=== PATIENT | female | born 1960 | race Caucasian/White ===

== ENCOUNTER → 2018-03-12 | Outpatient (CLI) | payer OTHER ==
[~2018-03-12] MED LIST: CETI10CA8 PO; CYCL10TA29 PO; DIPH-740 PO; FLUT16SP19 NS; IBUP-56 PO; LEVO-3 PO; LEVO125T77 PO; LISI-362 PO; MOMR ENA; MONT10TA PO; OXYC-865 PO
--- NOTE | 2018-03-12 09:34 | RADIOLOGY IMAGING REPORT ---
FACILITY: [facility] [place] PATIENT NAME: Magnolia Ware : 1960 MR: [id number] V: [id number] EXAM DATE: ORDERING PHYSICIAN: JENNIFER GLASGOW TECHNOLOGIST: Location: [facility] Patient: Magnolia Ware : 1960 Visit/Account:[id number] Date of Sevice: 03/12/2018 EXAMINATION: Abdominal ultrasound complete HISTORY: Liver and pancreas exists visualized on CT COMPARISON: CT abdomen pelvis February 22, 2018 FINDINGS: Gallbladder: No stones, wall thickening, pericholecystic fluid or sonographic Aldrich sign. Liver: Two cysts are identified in the liver one along the anterior dome measuring 1.25 centers in di ameter and one along the inferior right lobe measuring 4.7 cm in diameter. There is mild increased e chogenicity throughout liver which can be seen with fatty infiltration or other infiltrative process Common duct: Normal measuring 6.5 mm. Pancreas: Pancreas appears unremarkable at this time. Spleen: Normal in size and echogenicity measuring 12.1 cm in length. Kidneys: Normal in size and echogenicity, the right measures 10.2 cm in length, and the left 11 cm. No hydronephrosis. Upper abdominal aorta and IVC: Negative. Ascites: None. IMPRESSION: Hepatic cysts. Mild increased echogenicity throughout liver which can be seen with fatty infiltratio n or other infiltrative process The pancreas appears unremarkable at this time. If pancreatic pathology remains of strong clinical c oncern a follow-up MR or dedicated CT of the pancreas recommended for further evaluation if the patient is unable to have an MR Report Dictated By: Shannen Sharp MD at 03/12/2018 9:22 AM Report E-Signed By: Shannen Sharp MD at 03/12/2018 9:29 AM WSN:[email or web address]
== END ==
LOC: US 01:22
PROVIDERS: ATTEND Family Medicine
DX: K76.89 Other specified diseases of liver (principal); K86.2 Cyst of pancreas
CPT/HCPCS: 76700

== ENCOUNTER 2018-04-08 00:57 | Observation (INO) | payer OTHER ==
[2018-04-08] VITALS (9 sets, daily range): BP systolic 132–146; BP diastolic 61–82
[~2018-04-08] VITALS: Ht 162.6 cm; Wt 115.7 kg
[~2018-04-08 00:57] MED LIST changes: +MAGN100T PO; +TURM538C
[2018-04-08] MEDS ORDERED: MIDAZOLAM 2 MG/2 ML VIAL IVP PRN (07:25)
[2018-04-08] MEDS ORDERED: NORMOSOL R SOLN(*) 1000 ML BAG 1,000 ML IV PRN (07:25)
[2018-04-08] MEDS ORDERED: LIDOCAINE/SOD BICARB 8.4% SYR ID ONE (07:25)
[2018-04-08] MEDS ORDERED: FAMOTIDINE 20 MG TAB PO ONE (07:25)
[2018-04-08 12:35] LABS: PLATELET COUNT, AUTOMATED 325 K/uL (150-450)
[2018-04-08] MEDS ORDERED: ceFAZolin(*) 2GM/D5W 50ML 50 ML IVPB ONE (12:40)
[2018-04-08] MEDS ORDERED: BUPIVACAINE/EPI 0.5% 50ML VIAL INFIL ONE (13:07)
[2018-04-08] MEDS ORDERED: fentaNYL CITR 100 MCG/2 ML AMP ONE ×3 (15:02→17:45)
--- NOTE | 2018-04-08 15:15 | EKG ---
FACILITY: [facility] PATIENT NAME: KORTNEY REA : [id number] MR: [id number] V: [id number] EXAM DATE: ORDERING PHYSICIAN: ANIBAL HDZ TECHNOLOGIST: Test Reason : Pre-op Blood Pressure : / mmHG Vent. Rate : 095 BPM Atrial Rate : 095 BPM P-R Int : 140 ms QRS Dur : 060 ms QT Int : 332 ms P-R-T Axes : 065 048 056 degrees QTc Int : 417 ms Normal sinus rhythm Low voltage QRS Borderline ECG No previous ECGs available Confirmed by ANIBAL HDZ ([id number]) on 04/09/2018 6:06:41 AM Referred By: Confirmed By:ANIBAL HDZ
[2018-04-08] MEDS ORDERED: SUGAMMADEX SOD 500 MG/5 ML SDV ONE (16:49)
[2018-04-08] MEDS ORDERED: DEXAMETHASONE SOD PHOS 10MG/ML ONE (16:50)
[2018-04-08] MEDS ORDERED: ROCURONIUM BROM 10 MG/ML 10 ML ONE (16:50)
[2018-04-08] MEDS ORDERED: ONDANSETRON 4 MG/2 ML VIAL ONE ×2 (16:50→17:42)
[2018-04-08] MEDS ORDERED: SUCCINYLCHOL CHL 200MG/10ML VL ONE (16:50)
[2018-04-08] MEDS ORDERED: PROPOFOL EMUL(*) 10MG/ML 20 ML 40 ML ONE (16:50)
[2018-04-08] MEDS ORDERED: HYDROmorphone HCL 2 MG/ML SDV ONE (16:50)
[2018-04-08] MEDS: HYDROmorphone HCL 2 MG/ML SDV ONE (17:53)
[2018-04-08] MEDS ORDERED: NS(*) 0.9% 1000 ML BAG 1,000 ML IV SCH (18:10)
[2018-04-08] MEDS ORDERED: APAP/HYDROCODONE 325/7.5 TAB PO PRN (18:10)
[2018-04-08] MEDS ORDERED: MORPHINE 2 MG/ML SYR IVP PRN (18:10)
--- NOTE | 2018-04-08 21:42 | Post Operative Progress Note ---
Post Operative Progress Note Surgeon: edyta katz md Cad Designer: none Anesthesia: gen, local dr. jacob Pre-Op Diagnosis: large umb hernia Post-Op Diagnosis: same Findings: large umb hernia Procedure(s): open repair mesh with laparoscopic assist Specimen Removed:(May be N/A): hernia sac Complications: none Fluids: iv crystalloid Estimated Blood Loss: minimal FERCHO KATZ Apr 08, 2018 21:42
[2018-04-08] MEDS ORDERED: PROMETHAZINE 25 MG/ML 1 ML AMP IVP PRN (22:05)
[2018-04-08] MEDS ORDERED: ONDANSETRON 4 MG/2 ML VIAL IVP PRN (22:05)
[2018-04-08] MEDS: ceFAZolin(*) 2GM/D5W 50ML 50 ML IVPB SCH (23:53)
[2018-04-08] MEDS: KETOROLAC 30 MG/ML VIAL IVP SCH (23:53)
[2018-04-09] VITALS: BP 147/73
[2018-04-09 01:00] VITALS: BP 125/69
[2018-04-09] MEDS ORDERED: LEVOTHYROXINE SOD 0.125 MG TAB PO SCH (06:00)
[2018-04-09 06:29] LABS: PLATELET COUNT, AUTOMATED 319 K/uL (150-450)
[2018-04-09] MEDS: ceFAZolin(*) 2GM/D5W 50ML 50 ML IVPB SCH (06:30)
[2018-04-09] MEDS: KETOROLAC 30 MG/ML VIAL IVP SCH ×2 (06:32→11:42)
[2018-04-09] MEDS ORDERED: NS(*) 0.9% 1000 ML BAG 1,000 ML IV SCH (07:22)
--- NOTE | 2018-04-09 07:25 | General Surgery Progress Note ---
Subjective Progress Notes Subjective s/p ventral hernia repair. doing well. pain controlled. Physical Exam Vital Signs Date Time Temp Pulse Resp B/P (MAP) Pulse Ox O2 Delivery O2 Flow Rate FiO2 04/08/18 18:32 94 Nasal Cannula 2.0 04/08/18 18:15 80 16 04/08/18 12:39 98.0 132/71 (91) Intake and Output 04/09/18 07:00 Intake Total 5450 ml Balance 5450 ml Intake Oral 100 ml IV Total 2700 ml Other 2650 ml # Voids 1 General Appearance: No Acute Distress Cardiovascular: Other (reg rate) GI: Other (soft) Result Diagram: 04/09/18 0545 04/09/18 0545 Assessment and Plan Problems: (1) Ventral hernia Status: Acute Assessment & Plan: 04/09/18: s/p repair. doing well. advance diet. ambulate. home soon. Exam Sepsis Risk: No Definite Risk FERCHO BURNS Apr 09, 2018 07:25
[2018-04-09 08:06] VITALS: BP 113/67
[2018-04-09] MEDS ORDERED: LISINOPRIL 10 MG TAB PO SCH (09:00)
[2018-04-09] MEDS ORDERED: ENOXAPARIN 40 MG/0.4ML SYR SC SCH (09:00)
[2018-04-09 11:37] VITALS: BP 123/74
[2018-04-09] MEDS ORDERED: HYDR-653 PO (12:41)
--- NOTE | 2018-04-09 13:30 | Hospitalist Depart ---
Discharge Summary Reason for Hosp/Final Diag: (1) Ventral hernia Status: Acute Hospital Course & Plan: 04/09/18: s/p repair. doing well. advance diet. ambulate. home soon. Departure Weight (Pounds): 255 Result Diagram: 04/09/1845 04/09/1845 Condition: Improved Discharge Instructions Home Meds Active Scripts Hydrocodone Bit/Acetaminophen (NORCO 5-325 TABLET) 1 Each Tablet, 1 EACH PO Q4H for PAIN, #30 TAB Prov:FERCHO KATZ 04/09/18 Levothyroxine Sodium (SYNTHROID) 125 Mcg Tablet, 1 TAB PO QDAY, #90 TAB 1 Refill Prov:DINH HILTON DNP, [facility]- 01/22/17 Fluticasone Prop 50 Mcg Ns (FLONASE 50 MCG NS) 16 Gm [place].susp, 1 SPRAY NS BID, #1 BOT 6 Refills Prov:DINH HILTON DNP, [facility]- 11/07/16 Reported Medications Magnesium Amino Acid Chelate (MAGNESIUM) 100 Mg Tablet, 100 MG PO DAILY 03/25/18 Turmeric Root Extract (Turmeric) 538 Mg Capsule 03/19/18 Montelukast Sodium (SINGULAIR) 10 Mg Tablet, 1 TAB PO QDAY, TAB 10/03/16 Lisinopril (LISINOPRIL) 10 Mg Tablet, 10 MG PO QDAY, TAB 10/03/16 Ibuprofen (IBUPROFEN) 200 Mg Tablet, 3 TAB PO QHS, TAB 10/03/16 Diphenhydramine Hcl (BENADRYL) 25 Mg Capsule, 25 MG PO PRN, CAPSULE 10/03/16 Diet: Regular Activity: No Heavy Lifting Special Instructions: no lifting more than 15 lbs for 6 wks. remove bandage in 4 days. until then do not get bandage wet. take stool softener while taking pain meds. follow up dr. hugo katz 2 wks ([phone]). Venous Thromboembolism Antithrombotics Is Pt On Any Antithrombotics?: Yes FERCHO KATZ Apr 09, 2018 13:30
--- NOTE | 2018-04-09 13:48 | OPERATIVE REPORT 1 ---
EVENT DATE: April 08, 2018 SURGEON: Artis Jeffrey MD ANESTHESIOLOGIST: Ghanshyam Apple MD ANESTHESIA: Anesthesia and local. DRIER ATTENDANT: None. PREOPERATIVE DIAGNOSIS Ventral hernia. POSTOPERATIVE DIAGNOSIS Ventral hernia. PROCEDURE PERFORMED Open ventral hernia repair with mesh with laparoscopic assist. FLUIDS IV crystalloids. ESTIMATED BLOOD LOSS Minimal. SPECIMENS Hernia sac. COMPLICATIONS None. INDICATIONS This is a 57-year old female with an umbilical hernia for about 20 years. It did cause an episode of severe pain and patient presented to the emergency department at one point in the recent past. On physical exam, patient is stable. She has a large amount of tissue protruding though a ventral umbilical hernia. Risks and benefits of the procedure were explained and consent was signed. DESCRIPTION OF PROCEDURE The patient was taken to the operating room and placed in the supine position. General anesthesia was administered per the anesthesia team. The patient was prepped and draped in normal sterile fashion. A curved incision was made below the umbilicus and dissection was carried down carefully with electrocautery to the hernia sac. The hernia sac was opened. There was a large amount of omentum as well as the transverse colon in the hernia sac. In order to reduce this, I needed to enlarge the hernia defect mildly. The contents were then reduced. The hernia sac was removed. The dissection was performed bluntly around the umbilical stump and this was taken off the attenuated fascia. I cleared an area of omentum for approximately 1-2 cm anterior to the fascia. The defect was approximately 4 cm in diameter. I scrolled a piece of 17 x 10 cm Symbotex mesh and placed it in the abdomen. I then placed a 5 mm port on the left using my hand in the abdomen to guide the port into place without injury to underlying structures. I then used a #1 Prolene stitch in a running fashion to close the hernia defect longitudinally. The abdomen was then insufflated. Two other left sided ports were placed under direct vision as well as one right sided port. The mesh was placed over the closed hernia defect and was made to lie flat. Secure Strap absorbable tacks were used to secure the mesh. I then placed four quadrant transfascial Prolene stitches through the mesh using the port sites as well as the open incision. Ports were removed under direct vision and hemostasis was assured. The umbilical stump was secured to the fascia with a 3- 0 Vicryl stitch. Deep dermal 3-0 Vicryl stitches were used to approximate the edges of the wound and a 4-0 Monocryl subcuticular stitch was used to close the skin. The port site incisions were closed with 4-0 Monocryl subcuticular stitches as well. Final port had been removed after pneumoperitoneum was relieved and this was closed with 4-0 Monocryl subcuticular stitch as well. Dermabond and appropriate dressings were applied. The patient tolerated the procedure well. There were no complications. GEOVANI
== END 2018-04-09 13:27 | disposition home or self-care (01) ==
LOC: OR 00:57 → MED 18:32 → INTOOBSV 18:32
PROVIDERS: ADMIT Surgery; ATTEND Surgery
DX: K43.9 Ventral hernia without obstruction or gangrene (principal); I10 Essential (primary) hypertension
CPT/HCPCS: 36415; 49652; 85025; 88302; 93005; 96372; C1781; G0378; J0330; J1100; J1170; J1650; J1885; J2250; J2270; J2405; J2704; J3010; J7030; 82310; 82374; 82435; 82565; 82947; 84132; 84295; 84520; J0690